=== PATIENT | female | born 1965 | race Caucasian/White ===

== ENCOUNTER 2018-09-18 08:35 | Emergency (ER) | payer SELFPAY ==
[2018-09-18] MEDS ORDERED: Morphine 4 MG/ML VIAL ONE (09:24)
[2018-09-18] MEDS ORDERED: Ondansetron PF 4 MG/2 ML Vial ONE (09:25)
[2018-09-18 09:47] LABS: %Lymphocytes 37.5 % (21.0-51.0); %Monocytes 8.3 % (0.0-10.0); %Neutrophils 50.5 % (42.0-75.0); Hemoglobin 13.5 g/dL (12.0-16.0); Mean Corpuscular HGB CONC 33.1 g/dL (32.0-36.0); Mean Corpuscular Volume 90.6 fL (78.0-98.0); Mean Platelet Volume 7.6 fL (7.4-10.4); Platelet Count 254 thou/uL (130-400); RBC Distribution Width 12.1 % (11.5-14.5); Red Blood Cell (RBC) Count 4.49 mill/uL (4.20-5.40); White Blood Cell (WBC) Count 6.4 thou/uL (4.8-10.8)
[2018-09-18 09:48] LABS: #Basophils 0.1 thou/uL (0.0-0.2); #Eosinphils 0.2 thou/uL (0.0-0.7); #Lymphocytes 2.4 thou/uL (1.20-3.40); #Monocytes 0.5 thou/uL (0.11-0.59); #Neutrophils 3.2 thou/uL (1.40-6.50); %Basophils 1.1 % (0.0-1.0); %Eosinophils 2.6 % (0.0-10.0)
[2018-09-18 09:50] LABS: PTT 45.5 SEC (22.9-36.1)
[2018-09-18 09:51] LABS: Prothrombin Time 40.7 SEC (12.0-14.7)
[2018-09-18 10:04] LABS: INR-International Normal Ratio 4.2
[2018-09-18 10:12] LABS: Bilirubin Negative (Negative); Blood, Urine Large (Negative); Clarity TURBID (Clear); Glucose, Urine (Dipstick) >=1000 mg/dL (Negative); Leukocyte Small (Negative); Nitrite Negative (Negative); Protein, Urine (Dipstick) 30 mg/dL (Neg-Trace); Specific Gravity, Urine 1.017 (1.002-1.036); Urobilinogen 0.2 mg/dL (0.2-1.0)
[2018-09-18 10:14] LABS: Hyaline Casts/LPF 4-6 HYALINE CAST LPF (0-3 Hyaline); Pathc Cast-AUWi Flag 1.28 (0-2.49)
[2018-09-18 10:16] LABS: Yeast-AUWi Flag 56.7 (0-25.0)
[2018-09-18 10:24] LABS: Bacteria/HPF Rare-Few HPF (None Seen); RBC/HPF GREATER THAN 50-TNTC HPF (0-3); Yeast-All Forms None Seen HPF (None Seen)
[2018-09-18 11:08] LABS: ALT (SGPT) 108 U/L (8-55); AST (SGOT) 97 U/L (5-34); Albumin 4.2 g/dL (3.5-5.0); Alkaline Phosphatase 72 U/L (40-150); Anion Gap 12 mmol/L (10-20); BUN (Urea Nitrogen) 11 mg/dL (9.8-20.1); Bilirubin, Total 0.4 mg/dL (0.2-1.2); Calc. Creatinine Clearance 0 mL/min (70-130); Calcium 9.9 mg/dL (7.8-10.44); Carbon Dioxide 26 mmol/L (22-29); Chloride 103 mmol/L (98-107); Estimated GFR-MDRD 78; Glucose 283 mg/dL (70-105); Protein, Total 7.2 g/dL (6.0-8.3); Sodium 137 mmol/L (136-145)
--- NOTE | 2018-09-18 11:36 | CT ---
CT abdomen and pelvis with IV contrast HISTORY: Abdominal pain. Hematuria. FINDINGS: Mild atelectasis at each lung base. Right kidney is enlarged. 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 Calcification throughout the arterial structures. Narrowing of each common iliac artery, worse on the left than the right. Urinary bladder is unremarkable. No enlarged lymph nodes or free fluid. IMPRESSION: Status post left nephrectomy. Compensatory hypertrophy right kidney. No acute urinary tra ct abnormalities are demonstrated. Atherosclerosis with stenosis of the common iliac arteries, left greater than right.
[2018-09-18] MEDS ORDERED: ISOVUE-370 76%-LOCM 1 ML ONE (17:05)
== END 2018-09-18 12:06 | disposition home or self-care (01) ==
LOC: ERS 08:35
DX: N39.0 Urinary tract infection, site not specified (principal); R79.1 Abnormal coagulation profile; E11.9 Type 2 diabetes mellitus without complications; Z87.891 Personal history of nicotine dependence; Z79.4 Long term (current) use of insulin; Z79.899 Other long term (current) drug therapy; Z79.01 Long term (current) use of anticoagulants
CPT/HCPCS: 74177; 80053; 81003; 81015; 85025; 85610; 85730; 96374; 96375; J2270; J2405; Q9966